=== PATIENT | male | born 1965 | race Caucasian/White ===

== ENCOUNTER → 2019-09-21 | Day surgery (SDC) | payer OTHER ==
[2019-09-19 11:48] VITALS: BMI 45.8
[~2019-09-21] MED LIST: DEXAMETHASONE SOD PHOSPHATE 10 MG/ML 1 ML VIAL IV ONE; GLYCOPYRROLATE 0.2 MG/ML 2 ML VIAL ONE; HYDROmorphone 0.5 MG/0.5 ML SYRINGE IVP PRN; LACTATED RINGERS 1,000 ML IV SCH; LIDOCAINE 1% 20 ML VIAL (10MG/ML) FOR IV START INTRADERMA ONE; LIDOCAINE 1% INJ 10MG/ML (20 ML MDV) ONE; LIDOCAINE 1%-EPI 1:100,000 30 ML VIAL SQ ONE; MIDAZOLAM 2 MG/2 ML VIAL IV PRN; MIDAZOLAM 2 MG/2 ML VIAL ONE; NEOSTIGMINE 1 MG/ML 10 ML VIAL ONE; ONDANSETRON 4 MG/2 ML VIAL IVP ONE; PHENYLEPHRINE-0.9% NACL SYG 1 MG/10 ML SYRINGE ONE; PROPOFOL 10 MG/ML 20 ML VIAL IV ONE; Pre Op ABX Message 1 EACH MISC MISCELLANE ONE; ROCURONIUM BROMIDE 10 MG/ML 10 ML VIAL IV ONE; ROPIVACAINE 5 MG/ML 30 ML VIAL MISCELLANE ONE; SCOPOLAMINE 1.5MG/72HR PATCH TRANSDERM ONE; SUCCINYLCHOLINE CHLORIDE 100 MG/5 ML SYR IV ONE; fentaNYL (PF) 50 MCG/ML 2 ML AMP ONE
[2019-09-21 11:32] VITALS: RESP 16
[2019-09-21 13:38] VITALS: TEMP 97
--- NOTE | 2019-09-21 13:56 | P.OP ---
Date of Procedure: 09/21/19 Preoperative Diagnosis: Right carpal tunnel syndrome Postoperative Diagnosis: Right carpal tunnel syndrome Procedure(s) Performed: Right endoscopic carpal tunnel release Anesthesia: MAC, local Surgeon: Micheal Raymundo Estimated Blood Loss (ml): 1 Condition: stable Disposition: PACU Indications for Procedure: The patient is a pleasant 54-year-old male who was diagnosed with right carpal tunnel syndrome. Treatment options (and associated risks and benefits) were discussed in the office. The patient elected to proceed with surgical release. In preop, the patient denied any additional questions or concerns. Consent forms were signed. The operative site was confirmed and marked. Description of Procedure: The patient was positioned supine with the right arm on an arm board. A tourniquet was applied. Anesthesia was administered uneventfully. A time-out was performed, confirming patient identifiers, the operative side, site and the procedure to be performed: all team members expressed agreement. Using aseptic technique, local anesthetic was injected into the subcutaneous tissues around the planned incision. The right upper extremity was then prepped and draped in standard, sterile fashion. The limb was exsanguinated with an Esmarch and the tourniquet was inflated. Loupe magnification was used throughout the case for optimum visualization. A 1.5 cm transverse incision was marked just proximal to the wrist flexion crease, in line with the radial border of the ring finger. The skin was sharply incised and the subcutaneous tissues were bluntly spread. The volar carpal fascia was identified and sharply incised. Initial attempts to insert synovial elevator were met with traction against the nerve. A [place] elevator was inserted to gently release adhesions. The synovial elevator was reinserted and passed easily and atraumatically. This was used to release adhesions on the underside of the transverse carpal ligament. The washboard effect was palpable. A dilator was inserted to sound and enlarge the carpal tunnel. The hamate hook was palpable ulnarly. The side-specific guide and camera were inserted. The transverse carpal ligament was clearly visualized above. The distal edge of the ligament was identified and palpated with a probe. A rasp was used to clear the remaining synovial adhesions. The endoscopic blade was inserted and the distal half of the ligament was sharply incised. This was substantially thickened and required several passes to achieve complete release. Residual distal transverse fibers were released and then the proximal portion of the ligament was divided. Wide release of ligament was visually confirmed. The came ra was removed. The volar carpal fascia, proximal and distal to the incision, was released with scissors under direct visualization. After release, the nerve appeared flattened, consistent with chronic compression. The tourniquet was released after 14 minutes at 250 mm Hg. Excellent hemostasis was obtained with held pressure. The wound was thoroughly irrigated with normal saline. The incision was closed with interrupted 4-0 Nylon sutures. Additional local anesthetic with epinephrine was injected for adjunctive postoperative pain control and hemostasis. A soft, sterile dressing was applied. All sponge, needle and instrument counts were correct at the end of the case. The patient tolerated the procedure well and was transferred to recovery in stable condition.
[2019-09-21 14:52] VITALS: BP 122/75; PULSE 85
== END | disposition home or self-care (01) ==
LOC: OR 11:12
PROVIDERS: ATTEND Orthopaedic Surgery
DX: G56.03 Carpal tunnel syndrome, bilateral upper limbs (principal); M24.631 Ankylosis, right wrist; M77.11 Lateral epicondylitis, right elbow; M18.0 Bilateral primary osteoarthritis of first carpometacarpal joints; I10 Essential (primary) hypertension; E78.5 Hyperlipidemia, unspecified; G89.29 Other chronic pain; M25.562 Pain in left knee; M25.561 Pain in right knee; M25.512 Pain in left shoulder; M25.511 Pain in right shoulder; G47.33 Obstructive sleep apnea (adult) (pediatric); R73.03 Prediabetes; F17.210 Nicotine dependence, cigarettes, uncomplicated; E66.01 Morbid (severe) obesity due to excess calories; Z68.42 Body mass index [BMI] 45.0-49.9, adult; Z87.2 Personal history of diseases of the skin and subcutaneous tissue; Z87.828 Personal history of other (healed) physical injury and trauma; Z91.030 Bee allergy status; Z79.899 Other long term (current) drug therapy; Z79.82 Long term (current) use of aspirin; Z98.890 Other specified postprocedural states; Z83.3 Family history of diabetes mellitus; Z82.49 Family history of ischemic heart disease and other diseases of the circulatory system
CPT/HCPCS: 29848; J2250; J1100; J2710; J2405; J2001; J3010; J2795; J2370; J0330; J2704

== ENCOUNTER 2019-10-19 11:49 | Day surgery (SDC) | payer OTHER ==
[2019-10-16 15:06] VITALS: BMI 45.8
[~2019-10-19 11:49] MED LIST changes: -GLYCOPYRROLATE 0.2 MG/ML 2 ML VIAL ONE; -LIDOCAINE 1% 20 ML VIAL (10MG/ML) FOR IV START INTRADERMA ONE; +LIDOCAINE 1% 20 ML VIAL (10MG/ML) FOR IV START INTRADERMA PRN; -LIDOCAINE 1% INJ 10MG/ML (20 ML MDV) ONE; -LIDOCAINE 1%-EPI 1:100,000 30 ML VIAL SQ ONE; -MIDAZOLAM 2 MG/2 ML VIAL ONE; -NEOSTIGMINE 1 MG/ML 10 ML VIAL ONE; -PHENYLEPHRINE-0.9% NACL SYG 1 MG/10 ML SYRINGE ONE; -PROPOFOL 10 MG/ML 20 ML VIAL IV ONE; -ROCURONIUM BROMIDE 10 MG/ML 10 ML VIAL IV ONE; -ROPIVACAINE 5 MG/ML 30 ML VIAL MISCELLANE ONE; -SUCCINYLCHOLINE CHLORIDE 100 MG/5 ML SYR IV ONE; -fentaNYL (PF) 50 MCG/ML 2 ML AMP ONE
[2019-10-19] MEDS ORDERED: ePHEDrine SULFATE/0.9% NACL/PF 50 MG/5 ML SYRINGE IV ONE (13:50)
[2019-10-19] MEDS ORDERED: ROCURONIUM BROMIDE 10 MG/ML 10 ML VIAL IV ONE (13:50)
[2019-10-19] MEDS ORDERED: MIDAZOLAM 2 MG/2 ML VIAL ONE (13:50)
[2019-10-19] MEDS ORDERED: NEOSTIGMINE 1 MG/ML 10 ML VIAL ONE (13:50)
[2019-10-19] MEDS ORDERED: PROPOFOL 10 MG/ML 20 ML VIAL IV ONE (13:50)
[2019-10-19] MEDS ORDERED: fentaNYL (PF) 50 MCG/ML 2 ML AMP ONE (13:50)
[2019-10-19] MEDS ORDERED: GLYCOPYRROLATE 0.2 MG/ML 2 ML VIAL ONE (13:50)
[2019-10-19] MEDS ORDERED: LIDOCAINE 1% INJ 10MG/ML (20 ML MDV) ONE (13:50)
[2019-10-19] MEDS ORDERED: SUCCINYLCHOLINE CHLORIDE VIAL 200 MG/10 ML VIAL IV ONE (13:50)
[2019-10-19] MEDS ORDERED: LIDOCAINE 1%-EPI 1:100,000 30 ML VIAL SQ ONE (14:13)
[2019-10-19] MEDS ORDERED: BUPIVACAINE (PF) 0.5% 30 ML VIAL SQ ONE ×2 (14:22→14:54)
[2019-10-19] MEDS ORDERED: LACTATED RINGERS 1,000 ML IV ONE (14:51)
[2019-10-19 15:21] VITALS: TEMP 97.7
--- NOTE | 2019-10-19 15:27 | P.OP ---
Date of Procedure: 10/19/19 Preoperative Diagnosis: Left carpal tunnel syndrome Postoperative Diagnosis: Left carpal tunnel syndrome Procedure(s) Performed: Left endoscopic carpal tunnel release Anesthesia: TONA, local Surgeon: Micheal Raymundo Estimated Blood Loss (ml): 1 Condition: stable Disposition: PACU Indications for Procedure: The patient is a pleasant 54-year-old male who was diagnosed with bilateral carpal tunnel syndrome and previously underwent release of his right side. He had persistent symptoms left hand. Treatment options/alternatives (and associated risks and benefits) were discussed in the office and he elected to proceed with surgical release. In preop, the patient denied any additional questions or concerns. Consent forms were signed. The operative site was confirmed and marked. Description of Procedure: The patient was positioned supine with the left arm on hand table. A tourniquet was placed on the operative arm. Anesthesia was administered. A time-out was performed, confirming patient identifiers, the operative side, site and the procedure to be performed: all team members expressed agreement. Using aseptic technique, local anesthetic was injected into the subcutaneous tissues around the planned incision. The left upper extremity was then prepped and draped in standard, sterile fashion. The limb was exsanguinated with an Esmarch and the tourniquet was inflated. Loupe magnification was used throughout the case for optimum visualization. A 1.5 cm transverse incision was marked just proximal to the wrist flexion crease, in line with the radial border of the ring finger. The skin was sharply incised. The subcutaneous tissues were markedly thickened and dense. Spreading dissection proceeded down to the volar carpal fascia which was sharply incised longitudinally. A synovial elevator was used to release adhesions on the underside of the transverse carpal ligament. The washboard effect was palpable. A dilator was inserted to sound and enlarge the carpal tunnel. The hamate hook was palpable ulnarly. The side-specific guide and camera were inserted. The transverse carpal ligament was visualized above. It was covered with a dense layer of synovial tissue. The distal edge of the ligament was visually identified and palpated with a probe. A rasp was used to clear the synovial tissue from the undersurface of the ligament. The endoscopic blade was inserted and the distal half of the ligament was sharply incised. Residual distal transverse fibers were released and then the proximal portion of the ligament was divided. Wide release of the ligament was visually confirmed. The guide and camera were removed. The volar carpal fascia was released with scissors under direct visualization, proximal and distal to the incision. After release, the nerve at the level of the incision was still covered with a dense sheet of thickened perineural tissue. A local neurolysis was performed which substantially improved the appearance and mobility of the nerve. The tourniquet was released after 21 minutes at 250 mmHg. Good hemostasis was obtained with held pressure. A small persistent arterial bleeder at the skin edge was coagulated with bipolar cautery. The wound was thoroughly irrigated with normal saline. The incision was closed with interrupted 4-0 Nylon sutures. Additional local anesthetic with epinephrine was injected for adjunctive postoperative pain control and hemostasis. A soft, sterile dressing was applied. All sponge, needle and instrument counts were correct at the end of the case. The patient tolerated the procedure well and was transferred to recovery in stable condition.
[2019-10-19 15:32] VITALS: RESP 16
[2019-10-19 16:13] VITALS: BP 117/77; PULSE 90
== END 2019-10-19 16:28 | disposition home or self-care (01) ==
LOC: OR 11:49
PROVIDERS: ATTEND Orthopaedic Surgery
DX: G56.02 Carpal tunnel syndrome, left upper limb (principal); M18.0 Bilateral primary osteoarthritis of first carpometacarpal joints; M77.11 Lateral epicondylitis, right elbow; I10 Essential (primary) hypertension; E78.5 Hyperlipidemia, unspecified; G47.33 Obstructive sleep apnea (adult) (pediatric); F17.200 Nicotine dependence, unspecified, uncomplicated; E66.01 Morbid (severe) obesity due to excess calories; Z79.82 Long term (current) use of aspirin; Z79.1 Long term (current) use of non-steroidal anti-inflammatories (NSAID); Z79.899 Other long term (current) drug therapy; Z98.890 Other specified postprocedural states; Z83.3 Family history of diabetes mellitus; Z82.49 Family history of ischemic heart disease and other diseases of the circulatory system; Z68.42 Body mass index [BMI] 45.0-49.9, adult
CPT/HCPCS: 29848; J2250; J0330; J1100; J2710; J2405; J2001; J3010; J2704

== ENCOUNTER → 2021-03-23 | Outpatient (CLI) | payer OTHER ==
[2021-03-23 14:35] VITALS: BP 128/98; PULSE 90; RESP 18; TEMP 97.9; BMI 47.0
[2021-03-23 16:15] LABS: HCT 43.4 % (39.0-53.0); HGB 14.7 gm/dL (13.0-17.5); MCH 31.7 pg (25.0-35.0); MCHC 33.8 g/dL (31.0-37.0); Platelet Count 279 k/uL (150-450); RBC 4.62 m/uL (4.30-5.90); RDW 13.2 % (11.5-15.5); WBC 8.1 k/uL (3.8-10.6)
[2021-03-23 23:31] LABS: Hemoglobin A1C 7.2 % (4.0-6.0)
[2021-03-24 02:58] LABS: Albumin 4.4 g/dL (3.80-4.90); Albumin/Globulin Ratio 1.69 (1.60-3.17); Anion Gap 8.2 mmol/L (4.00-12.00); BUN/Creat Ratio 17.78 Ratio (12.00-20.00); Calcium 9.6 mg/dL (8.7-10.3); Carbon Dioxide 24.8 mmol/L (21.6-31.8); Globulin 2.6 g/dL (1.6-3.3); Non-African American GFR(CKD) 95.8 (60.0-200.0); Potassium 4.1 mmol/L (3.5-5.5); Total Bilirubin 0.4 mg/dL (0.3-1.2)
[2021-03-24 03:36] LABS: Folate, Serum 15.4 ng/mL
--- NOTE | 2021-03-24 11:37 | P.HPBAR ---
Bariatric H&P - History & Physicial H&P Date: 03/23/21 History & Physicial: Visit/CC: initial visit Patient initial contact: Initial weight: Initial weight in pounds: Height: 5 ft 9.5 in Initial BMI: Last weight: Current weight: 146.692 kg Current weight in pounds: 323.40 Current BMI: 47.0 [place] body weight (based on NIH guidelines): 73.936 kg Excess body weight loss: The patient is a 56 year-old M who presents for Bariatric Assessment. Patient presents today for sleeve gastrectomy. Surgical consultation. She has had lifetime problems obesity. Her BMI is 47. Past Medical History Past Medical History: Hypertension, Sleep Apnea/CPAP/BIPAP Additional Past Medical History / Comment(s): hx kidney stones, sleep apnea with c-pap machine. History of Any Multi-Drug Resistant Organisms: None Reported Past Surgical History: Orthopedic Surgery Additional Past Surgical History / Comment(s): lt carpel tunnel,arthroscopic knee surgery, colonoscopy Past Anesthesia/Blood Transfusion Reactions: No Reported Reaction Past Psychological History: No Psychological Hx Reported Smoking Status: Unknown if ever smoked Past Alcohol Use History: Occasional Additional Past Alcohol Use History / Comment(s): smokes 1 ppd, smoking off and on since 17 years old. Past Drug Use History: None Reported - Past Family History Mother Family Medical History: No Reported History Surgical - Exam Vital Signs Temp Pulse Resp BP 97.9 F 90 18 128/98 03/23/21 14:30 03/23/21 14:30 03/23/21 14:30 03/23/21 14:30 - General well developed, well nourished, no distress - Eyes PERRL - ENT normal pinna - Neck no masses - Respiratory normal expansion - Cardiovascular Rhythm: regular - Abdomen Abdomen: soft, non tender Results - Labs 03/23/21 15:12 03/23/21 15:12 Abnormal Lab Results - Last 24 Hours (Table) 03/23/21 03/23/21 Range/Units 15:12 15:12 Glucose 138 H (70-110) mg/dL Hemoglobin A1c 7.2 H (4.0-6.0) % Vitamin D 25-Hydroxy 27.2 L (30.0-100.0) ng/mL Diabetes panel 03/23/21 03/23/21 Range/Units 15:12 15:12 Sodium 142 (135-145) mmol/L Potassium 4.1 (3.5-5.5) mmol/L Chloride 109 (96-109) mmol/L Carbon Dioxide 24.8 (21.6-31.8) mmol/L BUN 16.0 (9.0-27.0) mg/dL Creatinine 0.9 (0.6-1.5) mg/dL Glucose 138 H (70-110) mg/dL Hemoglobin A1c 7.2 H (4.0-6.0) % Calcium 9.6 (8.7-10.3) mg/dL AST 21 (14-35) U/L ALT 38 (10-49) U/L Alkaline Phosphatase 52 (41-126) U/L Total Protein 7.0 (6.2-8.2) g/dL Albumin 4.40 (3.80-4.90) g/dL Calcium panel 03/23/21 Range/Units 15:12 Calcium 9.6 (8.7-10.3) mg/dL Albumin 4.40 (3.80-4.90) g/dL Pituitary panel 03/23/21 Range/Units 15:12 Sodium 142 (135-145) mmol/L Potassium 4.1 (3.5-5.5) mmol/L Chloride 109 (96-109) mmol/L Carbon Dioxide 24.8 (21.6-31.8) mmol/L BUN 16.0 (9.0-27.0) mg/dL Creatinine 0.9 (0.6-1.5) mg/dL Glucose 138 H (70-110) mg/dL Calcium 9.6 (8.7-10.3) mg/dL Adrenal panel 03/23/21 Range/Units 15:12 Sodium 142 (135-145) mmol/L Potassium 4.1 (3.5-5.5) mmol/L Chloride 109 (96-109) mmol/L Carbon Dioxide 24.8 (21.6-31.8) mmol/L BUN 16.0 (9.0-27.0) mg/dL Creatinine 0.9 (0.6-1.5) mg/dL Glucose 138 H (70-110) mg/dL Calcium 9.6 (8.7-10.3) mg/dL Total Bilirubin 0.4 (0.3-1.2) mg/dL AST 21 (14-35) U/L ALT 38 (10-49) U/L Alkaline Phosphatase 52 (41-126) U/L Total Protein 7.0 (6.2-8.2) g/dL Albumin 4.40 (3.80-4.90) g/dL Bariatric Assessment & Plan Plan: Morbid obesity, BMI 47. Patient will be scheduled for EGD. She'll follow-up in one month. Bariatric Checklist Checklist: Plan: Checklist: EGD: 1. Hiatal hernia: 2. H. Pylori: HgbA1c: Vitamin D: Smoking: Current every day smoker Primary care physician referral: Rena Espinal ([facility]) Psychiatry clearance: Cardiology clearance: Sleep study: Diet journal: VTE risk score: VTE risk level: Rehab needs at discharge:
== END ==
LOC: BARWHC3 13:24
PROVIDERS: ATTEND Surgery
DX: E66.01 Morbid (severe) obesity due to excess calories (principal); Z68.41 Body mass index [BMI] 40.0-44.9, adult; I10 Essential (primary) hypertension; F17.200 Nicotine dependence, unspecified, uncomplicated
CPT/HCPCS: 84425; 80053; 82607; 82746; 85027; 82306; 83036; 93005; G0463; 99203

== ENCOUNTER 2021-05-14 07:16 | Day surgery (SDC) | payer OTHER ==
[2021-05-11 17:10] VITALS: BMI 47.0
[~2021-05-14 07:16] MED LIST changes: -DEXAMETHASONE SOD PHOSPHATE 10 MG/ML 1 ML VIAL IV ONE; -HYDROmorphone 0.5 MG/0.5 ML SYRINGE IVP PRN; +LIDOCAINE 1% (10MG/ML) FOR IV START INTRADERMA PRN; -LIDOCAINE 1% 20 ML VIAL (10MG/ML) FOR IV START INTRADERMA PRN; -MIDAZOLAM 2 MG/2 ML VIAL IV PRN; -ONDANSETRON 4 MG/2 ML VIAL IVP ONE; -Pre Op ABX Message 1 EACH MISC MISCELLANE ONE; -SCOPOLAMINE 1.5MG/72HR PATCH TRANSDERM ONE
[2021-05-14 07:35] VITALS: TEMP 97.2
[2021-05-14 07:43] LABS: Glucose,Whole Blood 203 mg/dL (75-99)
[2021-05-14] MEDS ORDERED: MIDAZOLAM 2 MG/2 ML VIAL ONE (08:27)
[2021-05-14] MEDS ORDERED: LIDOCAINE 1% INJ 10MG/ML (20 ML MDV) ONE (08:27)
[2021-05-14] MEDS ORDERED: KETAMINE 10 MG/ML 20 ML VIAL ONE (08:27)
[2021-05-14] MEDS ORDERED: PROPOFOL 10 MG/ML 20 ML VIAL IV ONE (08:27)
--- NOTE | 2021-05-14 08:29 | P.GSHP ---
History of Present Illness H&P Date: 05/14/21 Chief Complaint: GERD, morbid obesity This a 56-year-old male presents today for EGD. He is undergoing workup for sleeve gastrectomy. Patient morbidly obese with BMI of 46. Past Medical History Past Medical History: Diabetes Mellitus, Hyperlipidemia, Hypertension, Sleep Apnea/CPAP/BIPAP Additional Past Medical History / Comment(s): hx kidney stones, sleep apnea with c-pap machine. History of Any Multi-Drug Resistant Organisms: None Reported Past Surgical History: Orthopedic Surgery Additional Past Surgical History / Comment(s): Bilat carpel tunnel, Rt arthroscopic knee surgery, colonoscopy Past Anesthesia/Blood Transfusion Reactions: No Reported Reaction Smoking Status: Current every day smoker - Past Family History Mother Family Medical History: No Reported History Medications and Allergies Home Medications Medication Instructions Recorded Confirmed Type Aspirin [Adult Low Dose Aspirin EC] 81 mg PO DAILY 09/19/19 05/11/21 History Atorvastatin [Lipitor] 40 mg PO DAILY 09/19/19 05/11/21 History Ibuprofen [Motrin Ib] 400 mg PO Q6H PRN 09/19/19 05/14/21 History Multivitamins, Thera [Multivitamin 1 tab PO DAILY 09/19/19 05/14/21 History (formulary)] lisinopriL [Zestril] 20 mg PO QAM 09/19/19 05/11/21 History Cholecalciferol (Vitamin D3) 125 mcg PO DAILY 05/11/21 05/11/21 History [Vitamin D3 (5000 Iu)] Cider Vinegar [Apple Cider Vinegar] 500 mg PO DAILY 05/11/21 05/11/21 History Fenofibrate [Lofibra] 54 mg PO DAILY 05/11/21 05/11/21 History Hydrochlorothiazide 12.5 mg PO DAILY 05/11/21 05/11/21 History [hydroCHLOROthiazide] [place]-3 Fatty Acids [[place]-3] 1,000 mg PO DAILY 05/11/21 05/11/21 History Saw [place] 450 mg PO DAILY 05/11/21 05/11/21 History Vitamin E 400 unit PO DAILY 05/11/21 05/11/21 History glipiZIDE [Glucotrol] 5 mg PO AC-BRKFST 05/11/21 05/11/21 History Allergies Allergy/AdvReac Type Severity Reaction Status Date / Time No Known Allergies Allergy Verified 05/14/21 07:30 Surgical - Exam Vital Signs Temp Pulse Resp BP Pulse Ox 97.2 F L 97 17 161/87 97 05/14/21 07:34 05/14/21 07:34 05/14/21 07:34 05/14/21 07:34 05/14/21 07:34 - General well developed, well nourished, no distress - Eyes PERRL - ENT normal pinna - Neck no masses - Respiratory normal expansion - Cardiovascular Rhythm: regular - Abdomen Abdomen: soft, non tender Results - Labs Abnormal Lab Results - Last 24 Hours (Table) 05/14/21 Range/Units 07:38 POC Glucose (mg/dL) 203 H (75-99) mg/dL Assessment and Plan Assessment: GERD, morbid obesity. We'll perform EGD
--- NOTE | 2021-05-14 08:40 | P.OP ---
Date of Procedure: 05/14/21 Preoperative Diagnosis: GERD Morbid obesity Postoperative Diagnosis: Antral gastritis Esophagitis Procedure(s) Performed: EGD Anesthesia: MAC Surgeon: Baldo King Pathology: other (Antrum, esophagus) Condition: stable Disposition: PACU Description of Procedure: The patient's placed on the endoscopy table in the lateral position. He received IV sedation. The gastro-/oropharynx past esophagus and stomach. Scope specimen pylorus. The first and second portion of the duodenum appeared normal. Scope was then brought back the antrum this appeared mildly inflamed. Biopsies performed. Scope was then retroflexed and the remainder of the stomach appeared normal. The GE junction was at 40 cm. The distal esophagus appeared inflamed. A biopsies performed. The proximal esophagus appeared normal. Scope was withdrawn for patient.
[2021-05-14 09:10] VITALS: BP 131/80; PULSE 88; RESP 20
== END 2021-05-14 09:09 | disposition home or self-care (01) ==
LOC: ORWHC2ENDO 07:16
PROVIDERS: ATTEND Surgery
DX: K29.50 Unspecified chronic gastritis without bleeding (principal); K21.00 Gastro-esophageal reflux disease with esophagitis, without bleeding; E66.01 Morbid (severe) obesity due to excess calories; Z68.42 Body mass index [BMI] 45.0-49.9, adult; E11.9 Type 2 diabetes mellitus without complications; E78.5 Hyperlipidemia, unspecified; I10 Essential (primary) hypertension; G47.33 Obstructive sleep apnea (adult) (pediatric); Z87.442 Personal history of urinary calculi; Z98.890 Other specified postprocedural states; F17.200 Nicotine dependence, unspecified, uncomplicated; Z79.84 Long term (current) use of oral hypoglycemic drugs; Z79.82 Long term (current) use of aspirin; Z79.899 Other long term (current) drug therapy
CPT/HCPCS: 88305; 43239; J2250; J2001; J2704

== ENCOUNTER → 2022-06-14 | Outpatient (CLI) | payer OTHER ==
[2022-06-14 13:04] VITALS: PULSE 93; TEMP 98.3; BMI 44.4
[2022-06-14 13:05] VITALS: BP 142/87
--- NOTE | 2022-06-14 14:49 | P.HPBAR ---
Bariatric H&P - History & Physicial H&P Date: 06/14/22 History & Physicial: Visit/CC: new patient Patient initial contact: Initial weight: Initial weight in pounds: Height: 5 ft 9 in Initial BMI: Last weight: Current weight: 136.395 kg Current weight in pounds: 300.70 Current BMI: 44.4 [place] body weight (based on NIH guidelines): 72.575 kg Excess body weight loss: The patient is a 57 year-old M who presents for Bariatric Assessment. Patient presents today for presurgical consultation. Patient is morbidly obese. His BMI is 44. She started the process over a year ago. However he is decided to restart the presurgical consultation process. He is well detailed on sleeve g astric. The risks and benefits of procedure including gastric stapling bleeding, scarring and week. Past Medical History Past Medical History: Diabetes Mellitus, Hyperlipidemia, Hypertension, Sleep Apnea/CPAP/BIPAP Additional Past Medical History / Comment(s): hx kidney stones, sleep apnea with c-pap machine. History of Any Multi-Drug Resistant Organisms: None Reported Past Surgical History: Orthopedic Surgery Additional Past Surgical History / Comment(s): Bilat carpel tunnel, Rt arthroscopic knee surgery, colonoscopy Past Anesthesia/Blood Transfusion Reactions: No Reported Reaction Smoking Status: Current every day smoker - Past Family History Mother Family Medical History: No Reported History Surgical - Exam Vital Signs Temp Pulse BP 98.3 F 93 134/100 06/14/22 12:57 06/14/22 12:57 06/14/22 12:57 - General well developed, well nourished, no distress - Eyes PERRL - ENT normal pinna, normal nares - Neck no masses - Respiratory normal expansion - Cardiovascular Rhythm: regular - Abdomen Abdomen: soft, non tender Bariatric Assessment & Plan Plan: Morbid obesity. Patient is scheduled for EGD. He'll follow-up in the clinic after this performed. Bariatric Checklist Checklist: Plan: Checklist: EGD: 1. Hiatal hernia: 2. H. Pylori: HgbA1c: Vitamin D: Smoking: Current every day smoker Primary care physician referral: Rena Espinal ([facility]) Psychiatry clearance: Cardiology clearance: Sleep study: Diet journal: VTE risk score: VTE risk level: Rehab needs at discharge:
[2022-06-14 18:10] LABS: African American GFR (CKD) 115.7 (60.0-200.0); Albumin 4.2 g/dL (3.8-4.9); Albumin/Globulin Ratio 1.2 (1.60-3.17); Anion Gap 10.8 mmol/L (10.00-18.00); Calcium 10.4 mg/dL (8.7-10.3); Carbon Dioxide 23.2 mmol/L (20.0-27.5); Globulin 3.5 g/dL (1.6-3.3); Non-African American GFR(CKD) 99.9 (60.0-200.0); Potassium 4.1 mmol/L (3.5-5.5); Total Bilirubin 0.4 mg/dL (0.30-1.20); Total Protein 7.7 g/dL (6.2-8.2)
== END ==
LOC: BARWHC3 12:47
PROVIDERS: ATTEND Surgery
DX: E66.01 Morbid (severe) obesity due to excess calories (principal); Z68.41 Body mass index [BMI] 40.0-44.9, adult; Z01.818 Encounter for other preprocedural examination; E11.9 Type 2 diabetes mellitus without complications; E78.5 Hyperlipidemia, unspecified; I10 Essential (primary) hypertension; F17.200 Nicotine dependence, unspecified, uncomplicated; E55.9 Vitamin D deficiency, unspecified
CPT/HCPCS: 84425; 80053; 82607; 82746; 85025; 82306; 83036; 93005; G0463; 99211